=== PATIENT | male | born 1955 | race Caucasian/White ===

== ENCOUNTER 2017-12-06 17:39 | Outpatient (CLI) | payer OTHER ==
--- NOTE | 2017-12-07 12:01 | XRAY Report ---
BILATERAL ANKLES: 12/06/2017 COMPARISON: No comparison. INDICATION: Ankle pain bilaterally. TECHNIQUE: Three views of each ankle. FINDINGS: There is a mildly displaced fracture of the distal right fibula with overlying soft tissue swelling. No other acute findings are seen. Alignment is near anatomic. IMPRESSION: DISTAL RIGHT FIBULA FRACTURE. TD: 12[facility]07/2017 12[facility]00 [facility]
== END 2017-12-06 17:40 | disposition home or self-care (01) ==
LOC: DI 17:39
PROVIDERS: ATTEND Family Medicine
DX: S82.831A Other fracture of upper and lower end of right fibula, initial encounter for closed fracture (principal); M25.572 Pain in left ankle and joints of left foot

== ENCOUNTER 2018-01-03 08:32 | Day surgery (SDC) | payer OTHER ==
[~2018-01-03 08:32] MED LIST: ceFAZolin 2 GM/50 ML 2 GM/50 ML BAG IV ONE
[2018-01-03] MEDS ORDERED: LACTATED RINGERS 1,000 ML IV ONE ×2 (08:43→11:00)
--- NOTE | 2018-01-03 09:13 | XRAY Report ---
FRONTAL CHEST: 01/03/2018 CLINICAL INDICATION: Preop. COMPARISON: 05/02/2013. FINDINGS: Frontal view of the chest demonstrates a normal cardiac silhouette. The lungs are clear. No effusion or pneumothorax is present. IMPRESSION: NORMAL CHEST. TD: 01/03/2018 09:12
[2018-01-03] MEDS ORDERED: BUPIVACAINE 0.5%-EPI 1:200000 PF 10 ML VIAL ONE (09:16)
[2018-01-03 09:27] LABS: HGB - HEMOGLOBIN 13.1 g/dL (14.0-18.0); MEAN CORPUSCULAR HEMOGLOBIN 30.9 pg (27.0-31.0); MEAN CORPUSCULAR HGB CONC 34.4 g/dL (32.0-36.0); MEAN CORPUSCULAR VOLUME 89.8 fL (80.0-94.0); MEAN PLATELET VOLUME 7.3 fL (7.4-11.4); RED BLOOD COUNT 4.23 10^6/uL (4.70-6.10); RED CELL DISTRIBUTION WIDTH 12.6 % (12.0-15.0); WHITE BLOOD COUNT 6.4 x10^3/uL (4.8-10.8)
[2018-01-03 09:42] LABS: ALBUMIN 3.8 g/dL (3.2-5.5); ALBUMIN/GLOBULIN RATIO 1.5 (1.0-2.2); BILIRUBIN,TOTAL 0.5 mg/dL (0.2-1.0); CALCIUM 8.9 mg/dL (8.5-10.3); CREATININE 0.7 mg/dL (0.6-1.2); TOTAL PROTEIN 6.3 g/dL (6.7-8.2)
[2018-01-03] MEDS ORDERED: BUPIVACAINE 0.5%-EPI 1:200000 PF 30 ML VIAL SUBQ ONE ×2 (10:17)
[2018-01-03] MEDS ORDERED: MIDAZOLAM 2 MG/2 ML VIAL IVP ONE (11:35)
[2018-01-03] MEDS ORDERED: fentaNYL 250 MCG/5 ML VIAL IVP ONE (11:35)
[2018-01-03] MEDS ORDERED: ACETAMINOPHEN 1,000 MG/100 ML 100 ML IV ONE (11:35)
[2018-01-03] MEDS ORDERED: LIDOCAINE-MPF 2% 5 ML VIAL IM ONE (11:35)
[2018-01-03] MEDS ORDERED: ONDANSETRON 4 MG/2 ML VIAL IVP ONE (11:35)
[2018-01-03] MEDS ORDERED: KETOROLAC 30 MG/ML VIAL IVP ONE (11:35)
[2018-01-03] MEDS ORDERED: PROPOFOL 200 MG/20 ML VIAL IVP ONE (11:35)
[2018-01-03] MEDS ORDERED: DEXAMETHASONE 4 MG/ML VIAL IVP ONE (11:35)
[2018-01-03] MEDS: HYDROmorphone 1 MG/ML CARPUJECT ONE ×2 (11:48→11:56)
[2018-01-03] MEDS ORDERED: fentaNYL 100 MCG/2 ML VIAL ONE (11:53)
[2018-01-03] MEDS ORDERED: oxyCOD/ACETAMIN 5 MG/325 MG TABLET PO ONE (13:18)
[2018-01-03 13:28] VITALS: BP 128/76
--- NOTE | 2018-01-03 13:44 | XRAY Report ---
THREE VIEW RIGHT ANKLE: 01/03/2018 CLINICAL INDICATION: Fracture fixation. FINDINGS Intraoperative AP, lateral, oblique views of the right ankle demonstrate sideplate and screw fixation of the fibula. Alignment is improved. 22 seconds of fluoroscopy time was provided to Dr. Landaverde; 3 spot images obtained. IMPRESSION: INTRAOPERATIVE IMAGING OF RIGHT ANKLE FRACTURE FIXATION. TD: 01/03/2018 11:41
--- NOTE | 2018-01-03 21:42 | OPERATIVE REPORT ---
DATE OF SERVICE: 01/03/2018 Physician: Rei Landaverde MD PREOPERATIVE DIAGNOSIS: Right lateral malleolus impending nonunion. POSTOPERATIVE DIAGNOSIS: Right lateral malleolus impending nonunion. NAME OF PROCEDURE: Right lateral malleolus open reduction, internal fixation. SURGEON: Rei Landaverde MD RENAL DIALYSIS TECHNICIAN: None. ANESTHESIA: General LMA. TOURNIQUET TIME: 80 minutes at 300 mmHg. INDICATIONS: This man had about a month earlier suffered a ski injury with a lateral malleolar fracture. When first seen, this was displaced, perhaps 2 mm. Followup radiographs had shown further displacement up to 4 or so millimeters with an obvious defect. PROCEDURE: Patient was brought into the operating room and placed under adequate general anesthesia. The right lower extremity was prepped and sterilely draped in the usual fashion. The timeout was held to identify patient, site and procedure. After exsanguination, a longitudinal incision was made over the fracture area. This was kept short at about 6 cm. An additional short incision was made at the tip of the lateral malleolus to allow the plate to be slid up from that position. Tissue was in an advanced stage of healing. There was no bleeding. Thick, scar -like tissue was resected or incised down to the bone. The defect at the fracture site was obvious and it was about 4 or so millimeters lateral displacement. In addition, the displacement was more anteriorly than posteriorly, indicating a rotatory deformity. After freeing up the bone with considerable periosteal elevation, it was possible to get an osteotome into the fracture site. Rotating this narrow osteotome could be done to lengthen the bone back to anatomic length, and then with rotation and a clamp placed securely across the fracture, the good reduction could be obtained and held. There was less than a millimeter step-off. The 3.5 Synthes locking set was utilized. A 6-hole semitubular locking plate was then bent somewhat with bending tools to better conform to the distal end of the fibula. It was then slid up from distal toward proximal. Fluoroscopy was used throughout the procedure for good AP, lateral and mortise views. Position of the plate was adjusted. A single cortex locking screw was placed in the distal hole of the plate, getting good fixation in the distal part of the malleolus. Following this, a bicortical locking screw was placed in the second hole from the top. Another was placed, unicortical, in the second hole from the bottom. A second screw was placed in the proximal portion of the plate in its upper end. At this point, the clamp could be removed and one additional screw was placed in the proximal portion of the plate. The final 6th screw was landing right in the fracture site and had no purchase and, therefore, was not utilized. The wound was irrigated with normal saline. Fluoroscopy was used to show the AP , mortise, and lateral views with a very good reduction and no impinging screws. The wound was irrigated again with normal saline. Some of the periosteal tissue could be reapproximated over the plate with 3-0 PDS simple sutures. The skin was closed with a running 3-0 Prolene subcuticular stitch, reinforced with Steri-Strips. A sterile bandage was applied. A thin fiberglass cast was applied. The cast was then split to allow for swelling and windowed to allow for access for dressing change. Patient was awakened and extubated and taken to the recovery room in good condition, having tolerated the procedure well with 1 or 2 mL of blood loss only. TD: 01/03/2018 21:42 BOBBI
--- NOTE | 2018-01-04 11:06 | XRAY Report ---
[facility] Fluoroscopy time only, 3 images submitted for interpretation. Fluoroscopy time 0 minutes, 22 seconds. STARLAD
== END 2018-01-03 08:33 | disposition home or self-care (01) ==
LOC: SDS 08:32
PROVIDERS: ATTEND Orthopaedic Surgery
PROC: 0QSJ04Z Reposition Right Fibula with Internal Fixation Device, Open Approach (ICD-10-PCS; principal; 2018-01-03 10:15)
DX: S82.61XK Displaced fracture of lateral malleolus of right fibula, subsequent encounter for closed fracture with nonunion (principal); G47.30 Sleep apnea, unspecified; K21.9 Gastro-esophageal reflux disease without esophagitis; F17.210 Nicotine dependence, cigarettes, uncomplicated; F41.9 Anxiety disorder, unspecified; F32.9 Major depressive disorder, single episode, unspecified
CPT/HCPCS: 27726; 36415; 71045; 73590; 80053; 85027; 93005; A9270; C1713; J0131; J0690; J1170; J3010; J7120

== ENCOUNTER 2018-02-01 15:20 | Emergency (ER) | payer OTHER ==
[2018-02-01 15:41] VITALS: BP 118/66
[2018-02-01 16:11] LABS: BASOPHILS % (AUTO) 0.3 %; EOSINOPHILS # (AUTO) 0.2 10^3/uL (0.0-0.7); EOSINOPHILS % (AUTO) 2.1 %; HGB - HEMOGLOBIN 13.8 g/dL (14.0-18.0); LYMPHOCYTES # (AUTO) 1.3 10^3/uL (1.5-3.5); LYMPHOCYTES % (AUTO) 15.8 %; MEAN CORPUSCULAR HEMOGLOBIN 30.6 pg (27.0-31.0); MEAN CORPUSCULAR HGB CONC 34.3 g/dL (32.0-36.0); MEAN CORPUSCULAR VOLUME 89.3 fL (80.0-94.0); MEAN PLATELET VOLUME 7.3 fL (7.4-11.4); MONOCYTES # (AUTO) 0.7 10^3/uL (0.0-1.0); MONOCYTES % (AUTO) 8.2 %; NEUTROPHILS % (AUTO) 73.6 %; PLT - PLATELET COUNT 221 10^3/uL (130-450); RED BLOOD COUNT 4.52 10^6/uL (4.70-6.10); RED CELL DISTRIBUTION WIDTH 12.8 % (12.0-15.0); WHITE BLOOD COUNT 8.2 x10^3/uL (4.8-10.8)
[2018-02-01 16:23] LABS: ALBUMIN 4.2 g/dL (3.2-5.5); ALBUMIN/GLOBULIN RATIO 1.4 (1.0-2.2); BILIRUBIN,TOTAL 0.8 mg/dL (0.2-1.0); CALCIUM 9.7 mg/dL (8.5-10.3); CREATININE 0.9 mg/dL (0.6-1.2); TOTAL PROTEIN 7.2 g/dL (6.7-8.2)
--- NOTE | 2018-02-01 16:56 | ED Physician Documentation ---
PD HPI ABD PAIN - Stated complaint Stated Complaint: R LOWER BACK/SIDE PX - Chief complaint Chief Complaint: Abd Pain - History obtained from History obtained from: Patient, Family - History of Present Illness Timing - onset: Enter time (1100), Today Timing - duration: Hours Timing - details: Abrupt onset, Still present Quality: Sharp, Pain Location: RUQ Improved by: Other (nothing) Worsened by: Other (nothing) Associated symptoms: No: Fever, Nausea, Vomiting Similar symptoms before: Has not had sx before Recently seen: Other (had a broken foot last month) - Additional information Additional information: 63-year-old male previously well has developed acute right flank pain. This developed at about 11:00 this morning it worsened about 1 PM the patient made his way to the hospital and had some resolution of his pain on the way to the hospital and he is gone into the bathroom to provide a urine specimen which has 2 small kidney stones in it. Review of Systems Constitutional: denies: Fever Ears: denies: Ear pain Nose: denies: Congestion Throat: denies: Sore throat Cardiac: denies: Chest pain / pressure Respiratory: denies: Dyspnea, Cough GI: reports: Abdominal Pain. denies: Nausea, Vomiting : denies: Dysuria, Frequency PD PAST MEDICAL HISTORY - Past Medical History Cardiovascular: None Respiratory: Sleep apnea, Other Endocrine/Autoimmune: None GI: GERD : None HEENT: Macular degeneration Musculoskeletal: Chronic back pain Derm: None - Past Surgical History HEENT: Tonsil/Adenoidectomy - Present Medications Home Medications: Ambulatory Orders Medication Instructions Recorded Confirmed Hydrocodone/Acetaminophen 1 each PO DAILY 01/03/18 01/03/18 [Hydrocodone-Acetamin 5-325 mg] Multivit-Min/FA/Lycopen/Lutein 1 each PO DAILY 01/03/18 01/03/18 [Centrum Silver Men Tablet] oxyCODONE [Roxicodone] 5 mg PO ONCE 01/03/18 01/03/18 - Allergies Allergies/Adverse Reactions: Allergies Allergy/AdvReac Type Severity Reaction Status Date / Time No Known Drug Allergies Allergy Verified 02/01/18 15:40 PD ED PE NORMAL - Vitals Vital signs reviewed: Yes (normal ) - General General: Alert and oriented X 3, No acute distress, Well developed/nourished - HEENT HEENT: Atraumatic, PERRL - Neck Neck: Supple, no meningeal sign - Cardiac Cardiac: RRR, No murmur - Respiratory Respiratory: No respiratory distress, Clear bilaterally - Abdomen Abdomen: Soft, Non tender - Back Back: No CVA TTP, No spinal TTP - Derm Derm: Normal color, Warm and dry, No rash - Extremities Extremities: No deformity, No edema - Neuro Neuro: No motor deficit, No sensory deficit Eye Opening: Spontaneous Motor: Obeys Commands Verbal: Oriented GCS Score: 15 - Psych Psych: Normal mood, Normal affect Results - Vitals Vitals: Vital Signs - 24 hr 02/01/18 15:36 Temperature 36.2 C L Heart Rate 67 Respiratory 17 Rate Blood Pressure 118/66 O2 Saturation 98 Oxygen O2 Source Room air - Labs Labs: Laboratory Tests 02/01/18 02/01/18 16:05 16:05 WBC 8.2 RBC 4.52 L Hgb 13.8 L Hct 40.3 L MCV 89.3 MCH 30.6 MCHC 34.3 RDW 12.8 Plt Count 221 MPV 7.3 L Neut # 6.0 Lymph # 1.3 L [place] # 0.7 Eos # 0.2 Baso # 0.0 Absolute Nucleated RBC 0.00 Nucleated RBC % 0.0 Sodium 139 Potassium 4.2 Chloride 103 Carbon Dioxide 29 Anion Gap 7.0 BUN 9 Creatinine 0.9 Estimated GFR (MDRD) 86 L Glucose 111 H Calcium 9.7 Total Bilirubin 0.8 AST 24 ALT 27 Alkaline Phosphatase 104 Total Protein 7.2 Albumin 4.2 Globulin 3.0 Albumin/Globulin Ratio 1.4 Lipase 32 PD MEDICAL DECISION MAKING - ED course Complexity details: reviewed results, re-evaluated patient, considered differential, d/w patient, d/w family ED course: 63-year-old male with typical kidney stone pain has resolution of his pain in route to the hospital his workup is initiated in the triage area and by the time he is back to the department his symptoms are resolved he produces yellow urine specimen with 2 small stones in it. He has no other medical illness or reason for further workup. Departure - Departure Disposition: 01 Home, Self Care Clinical Impression: Ureterolithiasis Condition: Stable Instructions: ED Stone Renal Passed Follow-Up: Your, doctor [Other]
[2018-02-01 17:00] LABS: BILIRUBIN,URINE NEGATIVE (NEGATIVE); GLUCOSE, URINE (UA) NEGATIVE (NEGATIVE); KETONES,URINE (UA) NEGATIVE (NEGATIVE); LEUKOCYTE ESTERASE, URINE TRACE (NEGATIVE); NITRITE,URINE NEGATIVE (NEGATIVE); OCCULT BLOOD,URINE LARGE (NEGATIVE); PROTEIN,URINE NEGATIVE (NEGATIVE); UROBILINOGEN,URINE 0.2 (NORMAL) E.U./dL (NORMAL)
[2018-02-01 17:14] LABS: CLARITY,URINE CLEAR (CLEAR)
[2018-02-01 17:32] LABS: BACTERIA,URINE None Seen /HPF (None Seen); RBC,URINE TNTC /HPF (0-5); SQUAMOUS EPITHELIAL CELL,UR NONE SEEN (<= Few)
== END 2018-02-01 17:51 | disposition home or self-care (01) ==
LOC: ED 15:20
DX: N20.1 Calculus of ureter (principal)
CPT/HCPCS: 36415; 80053; 81001; 81003; 83690; 85025; 87086; 99283

== ENCOUNTER 2020-03-17 08:57 | Emergency (ER) | payer OTHER ==
--- NOTE | 2020-03-17 09:11 | ED Physician Documentation ---
PD HPI SKIN - Stated complaint Stated Complaint: BILAT LEG SPIDER BITES - History obtained from History obtained from: Patient (He noticed 2 irritated areas, one on each juan over the last couple of days. No associated fevers or chills. He wonders of a spider might have bitten him.) Review of Systems Constitutional: denies: Fever, Chills Cardiac: reports: Reviewed and negative Respiratory: reports: Reviewed and negative PD PAST MEDICAL HISTORY - Past Medical History Cardiovascular: None Respiratory: Sleep apnea, Other Endocrine/Autoimmune: None GI: GERD : None HEENT: Macular degeneration Musculoskeletal: Chronic back pain Derm: None - Past Surgical History Past Surgical History: Yes HEENT: Tonsil/Adenoidectomy - Present Medications Home Medications: Ambulatory Orders Medication Instructions Recorded Confirmed Hydrocodone/Acetaminophen 1 each PO DAILY 01/03/18 01/03/18 [Hydrocodone-Acetamin 5-325 mg] Multivit-Min/FA/Lycopen/Lutein 1 each PO DAILY 01/03/18 01/03/18 [Centrum Silver Men Tablet] oxyCODONE [Roxicodone] 5 mg PO ONCE 01/03/18 01/03/18 Sulfamethoxazole/Trimethoprim 1 each PO BID 7 Days #14 tablet 03/17/20 [Sulfamethoxazole-Tmp Ds Tablet] Triamcinolone 0.1% Oint [Kenalog 1 gm TOP BID #2 tube 03/17/20 0.1% Oint] - Allergies Allergies/Adverse Reactions: Allergies Allergy/AdvReac Type Severity Reaction Status Date / Time No Known Drug Allergies Allergy Verified 02/01/18 15:40 - Social History Does the pt smoke?: No Smoking Status: Never smoker Does the pt drink ETOH?: No Does the pt have substance abuse?: No - POLST Patient has POLST: No PD ED PE NORMAL - Vitals Vital signs reviewed: Yes - General General: Alert and oriented X 3, No acute distress - Extremities Extremities: Other (There are 2 nonspecific quarter sized lesions, one on the anterior part of each juan. The right one has some petechia around it, the left one is more yellowish discolored. No obvious purulent drainage.) - Neuro Neuro: Alert and oriented X 3, Normal speech Results - Vitals Vitals: Oxygen O2 Source Room air PD MEDICAL DECISION MAKING - ED course ED course: Nonspecific lesions, most likely mosquito bites, less likely small staph infections or spider bites. Departure - Departure Disposition: 01 Home, Self Care Clinical Impression: Insect bite Qualifiers: Encounter type: initial encounter Site of insect bite: lower leg Laterality: unspecified laterality Qualified Code(s): S80.869A - Insect bite (nonvenomous), unspecified lower leg, initial encounter; W57.XXXA - Bitten or stung by nonvenomous insect and other nonvenomous arthropods, initial encounter Condition: Good Record reviewed to determine appropriate education?: Yes Instructions: ED Sting Bite Insect Infec Prescriptions: Triamcinolone 0.1% Oint [Kenalog 0.1% Oint] 1 gm TOP BID #2 tube Sulfamethoxazole/Trimethoprim [Sulfamethoxazole-Tmp Ds Tablet] 1 each PO BID 7 Days #14 tablet Comments: As discussed, these lesions are nonspecific. Could be insect bites, less likely a staph infection. You are being treated for both with oral antibiotics and topical steroid cream. Return if the area is increased in size significantly, become significantly painful, or generally worsen or if you run a fever.
[2020-03-17 09:16] VITALS: BP 155/119
== END 2020-03-17 09:15 | disposition home or self-care (01) ==
LOC: ED 08:57
DX: S80.862A Insect bite (nonvenomous), left lower leg, initial encounter (principal); S80.861A Insect bite (nonvenomous), right lower leg, initial encounter; W57.XXXA Bitten or stung by nonvenomous insect and other nonvenomous arthropods, initial encounter
CPT/HCPCS: 99282; 99283